=== PATIENT | male | born 1965 | race Caucasian/White ===

== ENCOUNTER 2022-08-19 21:01 | Emergency (ER) | payer MEDICAID ==
[~2022-08-19] VITALS: Ht 165.1 cm; Wt 65.8 kg
[2022-08-19 21:20] VITALS: BP 142/75
--- NOTE | 2022-08-19 21:30 | NUR ---
WALKED IN C/O BILATERAL FLANK PAIN RIGHT WORSE THAN LEFT X 1 MONTH. DENIES DYSURIA. PT STATES HE HAS TAKEN 3 DOSES TID OF KEFLEX FROM SOMEONE ELSES PRESCRIPTION. PT STATES HE IS TAKING JUNIPER SUPPLEMENT WHICH CAUSED DIARRHEA. PMH NONE
[2022-08-19 22:21] LABS: APPEARANCE,URINE CLEAR (CLEAR); BILIRUBIN,URINE NEGATIVE (NEGATIVE); BLOOD, URINE TRACE-I (NEGATIVE); COLOR,URINE YELLOW (YELLOW); LEUKOCYTE ESTERASE ,URINE NEGATIVE (NEGATIVE); NITRITE, URINE NEGATIVE (NEGATIVE); UGLUCOSE NEGATIVE (NEGATIVE)
--- NOTE | 2022-08-19 22:38 | NUR ---
Dr. Danielle examining patient.
[2022-08-19] MEDS ORDERED: KETO10TA2 PO (23:29)
[2022-08-19] MEDS ORDERED: KETOROLAC 30 MG/ML VIAL IM ONE (23:30)
[2022-08-20 00:08] VITALS: BP 132/77
--- NOTE | 2022-08-20 00:08 | NUR ---
Patient discharged with v/s stable. Written and verbal after care instructions given and explained for Back Injury Prevention. Patient alert, oriented and verbalized understanding of instructions. Ambulatory with steady gait. All questions addressed prior to discharge. ID band removed. Patient advised to follow up with PMD. Rx of Ketorolac given. Patient educated on indication of medication including possible reaction and side effects. Opportunity to ask questions provided and answered.
== END 2022-08-20 00:08 | disposition home or self-care (01) ==
LOC: MED 21:01
DX: M54.50 Low back pain, unspecified (principal); Z79.899 Other long term (current) drug therapy
CPT/HCPCS: 81003; 96372; 99283; J1885

== ENCOUNTER 2024-04-07 12:15 | Emergency (ER) | payer MEDICAID ==
[~2024-04-07] VITALS: Ht 170.2 cm; Wt 68.0 kg
[~2024-04-07 12:15] MED LIST: KETO10TA2 PO
[2024-04-07 12:23] VITALS: BP 118/83; PULSE 73; RESP 18; TEMP 98.3; O2SAT 98
[2024-04-07 13:37] LABS: BASOPHILS # (AUTO) 0.1 K/uL (0.00-0.22); BASOPHILS % (AUTO) 0.5 % (0.0-2.0); EOSINOPHILS # (AUTO) 0.1 K/uL (0-0.4); EOSINOPHILS % (AUTO) 0.7 % (0.0-4.0); HEMATOCRIT 41.6 % (36-52); LYMPHOCYTES # (AUTO) 1.4 K/uL (2.0-11.5); LYMPHOCYTES % (AUTO) 12.7 % (20.5-51.1); MEAN CORPUSCULAR HEMOGLOBIN 30 pg (27-31); MEAN CORPUSCULAR HGB CONC 34 g/dL (33-37); MEAN CORPUSCULAR VOLUME 88.3 fL (80-94); MONOCYTES # (AUTO) 0.6 K/uL (0.8-1.0); MONOCYTES % (AUTO) 5.9 % (1.7-9.3); NEUTROPHILS # (AUTO) 8.8 K/uL (1.8-7.7); NEUTROPHILS % (AUTO) 80.2 % (42.2-75.2); PLATELET COUNT (AUTO) 297 K/uL (140-450); RED BLOOD CELL COUNT(AUTO) 4.71 MIL/uL (4.20-6.10); RED CELL DISTRIBUTION WIDTH 15.2 % (11.6-13.7)
[2024-04-07] MEDS: LIDOCAINE 5% 1 EA PATCH TP ONE (13:38)
[2024-04-07] MEDS: KETOROLAC 30 MG/ML VIAL IM ONE (13:38)
[2024-04-07 13:46] LABS: ANION GAP 12.2 (8-16); CALCIUM 9.6 mg/dL (8.5-10.1); CARBON DIOXIDE 28.8 mmol/L (21-32); CREATININE 0.8 mg/dL (0.6-1.3)
[2024-04-07] MEDS ORDERED: NAPR-337 PO (14:13)
[2024-04-07] MEDS ORDERED: LID5T TP (14:13)
== END 2024-04-07 14:16 | disposition home or self-care (01) ==
LOC: MED 12:15
DX: M25.512 Pain in left shoulder (principal); Z79.899 Other long term (current) drug therapy
CPT/HCPCS: 36415; 71045; 80048; 84484; 85025; 93005; 96372; 99285; J1885